=== PATIENT | female | born 1940 | race Caucasian/White ===

== ENCOUNTER → 2018-05-28 | Outpatient (CLI) | payer OTHER ==
[~2018-05-28] MED LIST: AZITHROMYCIN 6600 M1; BENADRYL25 MG PO; CALCIUM 600 +1 EAC1 PO; FISH OIL 1,0001 EAC5 PO; IBUPROFEN 600600 M1 PO; LEVAQUIN 250 M250 MG PO; LEVAQUIN 500 M500 MG PO; MULTIVITAMINS PO; NORCO 5-325 TA1 EACH PO; PAIN & FEVER325 MG PO; PEPCID40 MG PO; PREDNISONE 10 M10 M1 PO; PROVENTIL HFA6.7 G1 INH; SYNTHROID; SYNTHROID100 MCG PO; VALIUM2 MG PO
== END ==
LOC: RAD 14:34
DX: M47.815 Spondylosis without myelopathy or radiculopathy, thoracolumbar region (principal); M41.85 Other forms of scoliosis, thoracolumbar region; M51.36 Other intervertebral disc degeneration, lumbar region; M48.04 Spinal stenosis, thoracic region; M12.88 Other specific arthropathies, not elsewhere classified, other specified site; I70.0 Atherosclerosis of aorta; M47.898 Other spondylosis, sacral and sacrococcygeal region

== ENCOUNTER → 2018-07-25 | Outpatient (CLI) | payer OTHER | LOC: RAD 14:32 | DX: J18.9 Pneumonia, unspecified organism (principal); M47.814 Spondylosis without myelopathy or radiculopathy, thoracic region; M41.84 Other forms of scoliosis, thoracic region ==

== ENCOUNTER 2019-04-20 11:31 | Inpatient (IN) | payer OTHER ==
[~2019-04-20] VITALS: Ht 160 cm; Wt 80.7 kg
[2019-04-20 13:00] VITALS: BP 160/87
[2019-04-20 13:24] LABS: HEMATOCRIT 45.3 % (37.0-47.0); HEMOGLOBIN 14.9 gm/dL (12.0-15.0); MCHC 32.9 g/dL (28.0-37.0); MCV 91.1 fL (80.0-100.0); RBC 4.97 mil/uL (4.20-5.00); RDW 13.3 % (10.5-14.5); WBC 7.8 thou/uL (4.0-11.0)
[2019-04-20 13:37] LABS: ALBUMIN 4.1 g/dL (3.4-5.0); CALCIUM 9.5 mg/dL (8.5-10.1); CREATININE 0.8 mg/dL (0.6-1.0); POTASSIUM 4.3 mmol/L (3.5-5.1); TOTAL BILIRUBIN 0.3 mg/dL (<0.1-1.0); TOTAL PROTEIN 8.1 g/dL (6.4-8.2)
[2019-04-20 19:53] VITALS: BP 160/56
--- NOTE | 2019-04-20 20:13 | NUR ---
PATIENT ARRIVED DIRECT ADMIT FROM DR SCHMIDT OFFICE AT 1330. A/OX4, DENIES PAIN. DIFFIICULTY BREATHING WHEN AMBULATING. 2L NC INPLACE. PATIENT BECAME ANXIOUS WHEN ANTIBIOTICS DID NOT ARRIVE FROM PHARMACY "ON TIME", AND THEN SHE STATED "I WANT TO GO HOME." REASSURED PATIENT MEDICATION ARRIVED AND THE IMPORTANCE OF GETTING THE IVPB ANTIBIOTIC STARTED. ENCOURAGE PT TO DISCUSS WITH PHYSICIAN IN THE MORNING REGARDING THE DISCHARGE PLANS. ON FALL PRECATIONS. CALL LIGHT IN REACH.
[2019-04-20 23:51] VITALS: BP 149/55
--- NOTE | 2019-04-21 03:57 | NUR ---
patient aox4 makes needs known. patient ambulates in the bathroom with steady gaits. patient refused scds. no shortness of air or distress this shift. patient is on room air. oxygen sat >95%. patient in bed asleep at this time breathing regular and unlaboured.
[2019-04-21 04:19] VITALS: BP 139/64
[2019-04-21 07:17] VITALS: BP 147/68
[2019-04-21] MEDS ORDERED: LEVAQUIN 500 M500 M2 PO (11:46)
--- NOTE | 2019-04-21 12:14 | NUR ---
Received awake on bed. Due medications given as prescribed. A+Ox4. Vital signs stable. On room air- saturating 98-98%. Up ad yaakov, on stand by assist due to IV. With NS at 80cc/hr, infusing well at L FA. No edema noed. Pt seen by Dr Mandel this AM, possible discharge this PM if O2 sats WNL resting and upon mobilising. With and bedside. Resting O2 sat at 98%, after mobilizing, sats 95-96%, no SOA noted- Dr Mandel informed, will put in discharge orders.
[2019-04-21 12:57] VITALS: BP 147/68
--- NOTE | 2019-04-21 14:05 | NUR ---
PT ADMITTED RELATED TO HYPOXIA/ COPD EXACERBATION. CMREVIEWED CHART AND SPOKE WITH CARE TEAM. CM MET WITH PT AT BEDSIDE THIS DAY. PT IS A&O X4. CM ROLE INTRODUCED. PT INDICATED SHE LIVES IN A HOUSE WITH HER SPOUSE WITH 1 STEP TO ENTER AND 11 STEPS INSIDE. 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 PT INDICATED NO DME OR HH EQUAL OPPORTUNITY ASSISTANT. PT IS TO DC HOME WITH NO NEEDS THIS DAY. NO OTHER CM INTERVENTION INDICATED. CASE CLOSED.
== END 2019-04-21 13:40 | disposition home or self-care (01) | DRG 190 ==
LOC: RAD 11:31 → 4W 12:18 → ENTRNSPT 04-21 13:30 → 4W 04-21 13:40
PROVIDERS: ADMIT Family Medicine
DX: J44.1 Chronic obstructive pulmonary disease with (acute) exacerbation (principal); J18.9 Pneumonia, unspecified organism; R09.02 Hypoxemia; E03.9 Hypothyroidism, unspecified; Z96.661 Presence of right artificial ankle joint; Z88.1 Allergy status to other antibiotic agents; Z88.0 Allergy status to penicillin; Z88.8 Allergy status to other drugs, medicaments and biological substances; Z79.1 Long term (current) use of non-steroidal anti-inflammatories (NSAID); Z79.899 Other long term (current) drug therapy
CPT/HCPCS: 10047